=== PATIENT | male | born 1995 | race Asian ===

== ENCOUNTER 2023-11-09 12:52 | Emergency (ER) | payer OTHER ==
[2023-11-09] MEDS ORDERED: levETIRAcetam 500 MG TAB ONE (14:36)
[2023-11-09] MEDS ORDERED: Ondansetron ODT 4 MG TAB ONE (14:48)
== END 2023-11-09 15:47 | disposition home or self-care (01) ==
LOC: CSHERS 12:52
DX: G40.909 Epilepsy, unspecified, not intractable, without status epilepticus (principal); J34.1 Cyst and mucocele of nose and nasal sinus; K03.81 Cracked tooth; Z76.0 Encounter for issue of repeat prescription
CPT/HCPCS: 70450; 70486; 76377; Q0162